=== PATIENT | female | born 1950 | race Caucasian/White ===

== ENCOUNTER 2018-06-02 08:26 | Outpatient (CLI) | payer MEDICARE, SELFPAY ==
[2018-06-02 15:28] LABS: TSH 1.62 uIU/mL (0.358-3.74)
== END 2018-06-02 08:46 ==
PROVIDERS: PCP Emergency Medicine; Visit Provider Emergency Medicine
DX: E03.9 Hypothyroidism, unspecified (principal)
CPT/HCPCS: 36415; 84443

== ENCOUNTER 2018-12-03 15:32 | Outpatient (REF) | payer MEDICARE, SELFPAY ==
--- NOTE | 2018-12-03 15:05 | PAPFT_PTH ---
PATIENT: Mya Berumen LOC: [facility] U#:[id number] AGE/SX: 68/F ROOM: RE12/03/[address]: KEVIN Sanchez : 1950 BED: DIS: 12/03/2018 SPEC #: [id number] RECD: 12/03/18 17:53 STATUS: ABEL REQ #: [id number] SELMA: 12/03/18 15:[address]: Francine Miller DEPT: [facility] Cytology RECD BY: Cassia Scanlon ENTERED: 12/03/18 17:53 SP TYPE: PAPFT OTHR DR: Alex Webster, Tissues: 1 - CX/ENDOCX FOR PAP SMEARS Procedures: PAP THIN PREP/[facility] Screening Comments: [id number]
== END 2018-12-03 15:52 ==
LOC: LBN 15:32
PROVIDERS: PCP Emergency Medicine; Visit Provider Nurse Practitioner Family
DX: Z12.4 Encounter for screening for malignant neoplasm of cervix (principal)
CPT/HCPCS: 88142

== ENCOUNTER 2018-12-07 01:07 | Outpatient (CLI) | payer MEDICARE, SELFPAY ==
--- NOTE | 2018-12-07 12:45 | DI.MAMMO_ITS ---
SYMPTOMS/DIAGNOSIS: SCREENING, Z12.31 MAMMOGRAM: Mammograms were interpreted according to the usual protocol including computer analysis with CAD system, tomosynthesis and C view imaging. The breasts are of moderate density with fairly symmetrical distribution of fibroglandular tissue. No dominant mass or clumped microcalcification is identified in either breast. Current examination is compared with previous examinations including October 2017 and there has been no gross interval change in appearance in comparison with the previous studies. CONCLUSION: No specific evidence of malignancy at this time. Routine screening examinations are suggested at yearly intervals due to the family history of breast carcinoma. Category 1, breast density category B. MQSA ASSESSMENT OF FINDINGS: Negative. Category 1. Patient will receive a letter notifying them of these results. BI-RADS category B. There are scattered areas of fibroglandular density.
== END 2018-12-07 01:27 ==
PROVIDERS: PCP Emergency Medicine; Visit Provider Nurse Practitioner Family
DX: Z12.31 Encounter for screening mammogram for malignant neoplasm of breast (principal); Z80.3 Family history of malignant neoplasm of breast
CPT/HCPCS: 77063; 77067

== ENCOUNTER → 2019-01-15 10:49 | Outpatient (BNVA) | payer MEDICARE, SELFPAY | PROVIDERS: PCP Emergency Medicine; Referring Provider Emergency Medicine; Visit Provider Physical Therapy Assistant | DX: Z12.11 Encounter for screening for malignant neoplasm of colon (principal); Z86.010 Personal history of colon polyps ==

== ENCOUNTER 2019-02-12 06:14 | Day surgery (SDC) | payer MEDICARE, SELFPAY ==
[2019-02-12 06:31] VITALS: BP 121/80; PULSE 87; RESP 18; TEMP 36.2; O2SAT 97
[2019-02-12] MEDS: Lactated Ringers 1,000 ML 80 ML IV (06:44)
--- NOTE | 2019-02-12 07:58 | W.PM.DSUDISC ---
Discharge Plan Disposition Patient Disposition: HOME Condition: Good Discharge Details Attending Provider: Thuy Conteh Primary Care Provider: Alex Webster Home Meds and New Rx's Prescriptions: Continued magnesium gluconate [Mag-G] 27 mg magnesium (500 mg) tablet 500 mg PO BID RF: 0 zinc 50 mg tablet 50 mg PO DAILY RF: 0 melatonin 5 mg tablet 15 mg PO HS PRNRF: 0 levothyroxine [Synthroid] 175 mcg tablet 175 mcg PO DAILY Qty: 90 RF: 3 PreserVision AREDS 1 EACH tablet 2 ea PO DAILY RF: 0 citalopram 20 MG tablet 20 mg PO DAILY Qty: 60 RF: 6 cetirizine [Zyrtec] 10 MG tablet 10 mg PO DAILY RF: 0 Discontinued polyethylene glycol 3350 17 gram/dose powder 238 g PO ONCE Qty: 238 RF: 0 bisacodyl [Dulcolax (bisacodyl)] 5 mg tablet,delayed release (DR/EC) 5 mg PO ONCE Qty: 4 RF: 0 Discharge Instructions Additional Instructions: Your colonoscopy showed mild diverticulosis. No polyps were found Plan for follow up in 5 years due to family history Activity:: Activity as Tolerated Diet:: As Tolerated Discharge Orders Discharge Orders: Discharge Order (Routine); Ordered 02/12/19 Ordered By: Thuy Conteh DS: Diagnosis Discharge Diagnosis (1) Diverticulosis: Start date: 02/12/19 Start time: 07:59 Status: Acute
[2019-02-12 08:30] VITALS: BP 114/65; PULSE 71; RESP 18; TEMP 36; O2SAT 97
--- NOTE | 2019-02-12 10:49 | COLE_ITS ---
DATE OF PROCEDURE: February 12, 2019 PREOPERATIVE DIAGNOSIS: 1. Family history of colon cancer. 2. History of colon polyp. PROCEDURE: Colonoscopy. SURGEON: Thuy Conteh M.D. ANESTHESIA: General. INDICATIONS: This is a 68-year-old woman whose last colonoscopy in 2013 showed a tubular adenoma. S he is asymptomatic. Her family history is significant for a sister with colon cancer. PROCEDURE: She was placed in the left Castillo' position. Propofol is titrated to sedation. Digital re ctal examination revealed no abnormalities. The scope is advanced to the cecum without difficulty. The ileocecal valve and appendiceal orifice were clearly identified. Her prep was excellent. The sc ope was slowly withdrawn over the course of greater than six minutes with no abnormalities seen withi n the ascending, transverse or descending colon. The sigmoid region revealed mild diverticular keane e. The rectum was normal, including on retroflex view. She tolerated the procedure well and was sta ble to recovery. With her history of polyps and family history, she will need a follow-up colonoscop y again in five years. cc: Alex Webster D.O.
== END 2019-02-12 08:38 | disposition home or self-care (01) ==
PROVIDERS: PCP Emergency Medicine; Visit Provider Surgery
PROC: 0DJD8ZZ Inspection of Lower Intestinal Tract, Via Natural or Artificial Opening Endoscopic (ICD-10-PCS; CPT 45378; principal; 2019-02-12 07:30)
DX: Z12.11 Encounter for screening for malignant neoplasm of colon (principal); K57.30 Diverticulosis of large intestine without perforation or abscess without bleeding; Z86.010 Personal history of colon polyps; Z80.0 Family history of malignant neoplasm of digestive organs
CPT/HCPCS: G0105

== ENCOUNTER 2019-03-18 10:04 | Outpatient (CLI) | payer MEDICARE, SELFPAY ==
[2019-03-18 12:50] LABS: Hemoglobin A1C 5.7 % (4.5-6.2)
[2019-03-18 13:23] LABS: TSH 3.47 uIU/mL (0.36-3.74)
== END 2019-03-18 10:24 ==
PROVIDERS: PCP Emergency Medicine; Visit Provider Emergency Medicine
DX: E03.9 Hypothyroidism, unspecified (principal); E66.9 Obesity, unspecified; Z13.1 Encounter for screening for diabetes mellitus
CPT/HCPCS: 36415; 83036; 84443

== ENCOUNTER 2020-06-09 02:48 | Outpatient (CLI) | payer MEDICARE, SELFPAY ==
[2020-06-09 14:18] LABS: ALT 48 U/L (14-59); AST 29 U/L (15-37); Albumin 4.1 g/dL (3.4-5.0); Alkaline Phosphatase 118 U/L (46-116); Anion Gap 5.9 mmol/L (3-11); BUN 25 mg/dL (7-18); Bilirubin, Total 0.4 mg/dL (0.2-1.0); CO2 30.1 mmol/L (21.0-32.0); CREATININE 0.89 mg/dL (0.55-1.02); Chloride 104 mmol/L (98-107); Ferritin 279 ng/mL (8-252); Glucose 109 mg/dL (74-106); Potassium 4.1 mmol/L (3.5-5.1); Sodium 140 mmol/L (136-145)
== END 2020-06-09 03:08 ==
PROVIDERS: PCP Emergency Medicine; Visit Provider Nurse Practitioner
DX: M25.561 Pain in right knee (principal); E66.9 Obesity, unspecified
CPT/HCPCS: 36415; 80053; 82728

== ENCOUNTER 2020-06-13 10:51 | Outpatient (REF) | payer MEDICARE, SELFPAY ==
[2020-06-13 13:37] LABS: TSH 0.22 uIU/mL (0.36-3.74)
== END 2020-06-13 11:11 ==
LOC: LBN 10:51
PROVIDERS: PCP Emergency Medicine; Visit Provider Emergency Medicine
DX: E03.9 Hypothyroidism, unspecified (principal)
CPT/HCPCS: 84443

== ENCOUNTER 2020-09-06 02:46 | Outpatient (CLI) | payer MEDICARE, SELFPAY ==
--- NOTE | 2020-09-06 07:35 | DI.MAMMO_ITS ---
EXAM: MG MAMMO SCREENING CLINICAL HISTORY: screening TECHNIQUE: Bilateral full field digital CC and MLO mammographic images were obtained with 3D tomosyn thesis and utilizing computer aided detection (CAD). COMPARISON: Available for comparison. FINDINGS: Masses/Architectural Distortion: No suspicious masses or areas of architectural distortion. Small bi lateral nodules are present. Microcalcifications: No suspicious pleomorphic-type are seen. Skin Thickening/Nipple Retraction: None. IMPRESSION: 1. No significant interval change with no specific features of malignancy noted. 2. Unless there is more urgent need, screening mammography is recommended, as per [employer] guidelines. BI-RADS Category 2 - Benign Findings Breast Density - Category B - Scattered areas of fibroglandular density Breast density category C or D implies that the patient has dense breast tissue. Dense breast tissue is very common and is not abnormal but dense breast tissue can make it harder to find cancer on a ma mmogram. Also, dense breast tissue may increase their breast cancer risk. This information about the result of the mammogram report was provided to the patient to raise their awareness. Use this report when you speak with the patient about their risks for breast cancer, which includes their family hist ory. At that time, you may recommend for more screening tests (Ultrasound or MRI) as they might be us eful based on their risk. A negative radiographic report should not delay biopsy if a dominant or clinically suspicious mass is present. Up to ten percent of cancers are not identified on mammography. A negative report may reinforce clinical impression. Adenosis and dense breasts may obscure an underlying neoplasm. False positive reports average 6 to 10%. Patient will receive a letter notifying them of these results.
== END 2020-09-06 02:47 | disposition home or self-care (01) ==
PROVIDERS: PCP Emergency Medicine; Visit Provider Nurse Practitioner Family
DX: Z12.31 Encounter for screening mammogram for malignant neoplasm of breast (principal)
CPT/HCPCS: 77063; 77067

== ENCOUNTER 2021-03-27 16:55 | Outpatient (REF) | payer MEDICARE, SELFPAY ==
[2021-03-27 19:14] LABS: TSH 2.04 uIU/mL (0.36-3.74)
== END 2021-03-27 16:56 | disposition home or self-care (01) ==
LOC: LBN 16:55
PROVIDERS: PCP Emergency Medicine; Visit Provider Emergency Medicine
DX: E03.9 Hypothyroidism, unspecified (principal)
CPT/HCPCS: 84443

== ENCOUNTER 2021-07-11 18:04 | Day surgery (SDC) | payer MEDICARE, SELFPAY ==
[2021-07-11] VITALS (28 sets, daily range): BP systolic 124–145; BP diastolic 59–93; PULSE 73–91; RESP 16–18; TEMP 36.6; O2SAT 92–97
--- NOTE | 2021-07-11 18:15 | DI.RAD_ITS ---
Exam(s) XR HIP LT COMPLETE AP PELVIS EXAM: XR HIP LT COMPLETE AP PELVIS CLINICAL HISTORY: fall/pain. TECHNIQUE: 2D digital imaging was performed. COMPARISON: No exams were available for comparison FINDINGS: There is nondisplaced fracture at the mid level of the left hip femoral neck. No other pelvic fractu res identified.. No hip joint space narrowing. Sacroiliac joints unremarkable. Degenerative disc d isease lumbar spine. IMPRESSION: There is nondisplaced fracture at the mid left femoral neck. DATA REPOSITORY: RADIATION DOSE DELIVERED:
--- NOTE | 2021-07-11 18:36 | W.ED.GENAD ---
Discharge Plan Disposition Patient Disposition: [facility] INPATIENT Condition: Stable Discharge Details Chief Complaint: Orthopedic Clinical Impression: Fracture of femoral neck, left Primary Care Provider: Alex Webster ED Provider: Paulo Wall Home Meds and New Rx's Prescriptions: No Action melatonin 5 mg tablet 10 mg PO HS PRNRF: 0 ropinirole 1 mg tablet 1 mg PO QHS RF: 0 PreserVision AREDS 1 EACH tablet 2 ea PO DAILY RF: 0 famotidine 20 mg tablet 20 mg PO BID Qty: 180 RF: 2 citalopram 20 mg tablet 20 mg PO DAILY Qty: 90 RF: 6 levothyroxine [Synthroid] 175 mcg tablet 175 mcg PO DAILY Qty: 90 RF: 3 Medical Decision Making 70-year-old female, past medical history of thyroid disease, GERD, anxiety, not anticoagulated, presents to the ER now for left hip pain status post mechanical fall around 2 PM this afternoon. She denies any other injury. She has been able to bear weight since her fall. Did not take any medication for her symptoms. Clinically she appears well, nontoxic. Neuro, vascular, tendon intact. Patient denies any pain at the moment, does not want any analgesia. Plan is to obtain x-ray imaging of her left hip and pelvis and then reassess. X-ray of left hip and pelvis reveals a nondisplaced fracture of the left femoral neck. Case discussed with our orthopedic team, Dr. Luong. He believes that the patient can be cared for here at our facility and recommends admitting to the hospitalist services, plans to bring her to the OR tomorrow. Routine screening laboratory values were obtained as well as an EKG. Discussed x-ray findings and my conversation with Dr. Luong with the patient. She is agreeable to admission and surgery. No additional questions or concerns. Case then discussed with our hospitalist services, Dr. Santoyo. He is agreeable to admission and will place admission orders. This documentation was generated using [employer] system, please disregard any oddities of phrase or misspellings. Medical Records Medical records reviewed: Yes I reviewed the patient's medical records. Imaging Data Radiologic Study: Attestation: I personally reviewed and interpreted this imaging study as follows: Imaging: X-Ray Radiologist's impression: PROCEDURE INFORMATION: Exam: XR Left Hip Exam date and time: 07/11/2021 6:29 PM Age: 70 years old Clinical indication: Other: Fall TECHNIQUE: Imaging protocol: XR Left hip. Views: 2 or 3 views hip with pelvis when performed. COMPARISON: No relevant prior studies available. FINDINGS: Bones/joints: Nondisplaced fracture present at the left mid femoral neck. The femoral head is appropriately located. Intertrochanteric region is maintained. Pubic rami are intact. No abnormalities observed in the proximal right femur. Soft tissues: Unremarkable. IMPRESSION: Nondisplaced fracture, left mid femoral neck. Lab Data Lab results reviewed: Yes I reviewed the patient's lab results. Labs: Laboratory Tests Range/Units 07/11/21 07/11/21 07/11/21 19:10 19:10 19:10 WBC (4.4-10.8) 10^3/uL 9.72 RBC (3.93-5.22) 10^6/uL 4.58 Hgb (11.2-15.7) g/dL 13.2 Hct (36.0-46.0) % 40.6 MCV (80-95) fL 88.6 MCH (27.0-33.0) pg 28.8 MCHC (32.0-36.0) % 32.5 RDW (11.7-14.6) % 12.8 Plt Count (130-400) 10^3/uL 249 MPV (8.0-11.0) fL 9.8 Immature Gran % 0.4 Neutrophils % 86.5 Lymphocytes % 5.7 Monocytes % 7.0 Eosinophils % 0.1 Basophils % 0.3 Nucleated RBC % % 0 Absolute Neutrophils (1.2-6.7) 10^3/uL 8.41 H Absolute Lymphocytes (1.2-3.4) 10^3/uL 0.55 L Absolute Monocytes (0.1-0.8) 10^3/uL 0.68 Absolute Eosinophils (0.0-0.7) 10^3/uL 0.01 Absolute Basophils (0.0-0.2) 10^3/uL 0.03 PT (9.3-11.0) sec 10.2 INR (0.9-1.1) 1.0 APTT (21.0-27.5) sec 22.7 Sodium (136-145) mmol/L 139 Potassium (3.5-5.1) mmol/L 4.1 Chloride (98-107) mmol/L 103 Carbon Dioxide (21.0-32.0) mmol/L 27.3 Anion Gap (3-11) mmol/L 8.7 BUN (7-18) mg/dL 30 H Creatinine (0.55-1.02) mg/dL 0.7 Estimated GFR/1.73 m2 (mL/min/1.73m2) >= 60.00 Glucose (74-106) mg/dL 121 H Calcium (8.5-10.1) mg/dL 8.9 Total Bilirubin (0.2-1.0) mg/dL 0.5 AST (15-37) U/L 37 ALT (14-59) U/L 56 Alkaline Phosphatase (46-116) U/L 85 Total Protein (6.4-8.2) g/dL 7.2 Albumin (3.4-5.0) g/dL 4.0 COVID-19 Source Range/Units 07/11/21 19:15 WBC (4.4-10.8) 10^3/uL RBC (3.93-5.22) 10^6/uL Hgb (11.2-15.7) g/dL Hct (36.0-46.0) % MCV (80-95) fL MCH (27.0-33.0) pg MCHC (32.0-36.0) % RDW (11.7-14.6) % Plt Count (130-400) 10^3/uL MPV (8.0-11.0) fL Immature Gran % Neutrophils % Lymphocytes % Monocytes % Eosinophils % Basophils % Nucleated RBC % % Absolute Neutrophils (1.2-6.7) 10^3/uL Absolute Lymphocytes (1.2-3.4) 10^3/uL Absolute Monocytes (0.1-0.8) 10^3/uL Absolute Eosinophils (0.0-0.7) 10^3/uL Absolute Basophils (0.0-0.2) 10^3/uL PT (9.3-11.0) sec INR (0.9-1.1) APTT (21.0-27.5) sec Sodium (136-145) mmol/L Potassium (3.5-5.1) mmol/L Chloride (98-107) mmol/L Carbon Dioxide (21.0-32.0) mmol/L Anion Gap (3-11) mmol/L BUN (7-18) mg/dL Creatinine (0.55-1.02) mg/dL Estimated GFR/1.73 m2 (mL/min/1.73m2) Glucose (74-106) mg/dL Calcium (8.5-10.1) mg/dL Total Bilirubin (0.2-1.0) mg/dL AST (15-37) U/L ALT (14-59) U/L Alkaline Phosphatase (46-116) U/L Total Protein (6.4-8.2) g/dL Albumin (3.4-5.0) g/dL COVID-19 Source Nasal/Nares ECG Data Attestation: I personally reviewed and interpreted this ECG (s) as follows: Interpretation: Please see official report by Dr. Lion. Sinus rhythm, ventricular rate of 83. No STEMI. HPI General Mode of arrival: EMS. Date/Time Provider Initiated Documentation: 07/11/21 18:11. Limitations to Documentation: no limitations. Information obtained by: patient and EMS. HPI Narrative: This is a 70-year-old female, history of thyroid disease, GERD, anxiety, not anticoagulated, presenting to the ER for evaluation of left hip pain status post mechanical slip and fall on ice around 2:00 this afternoon. Patient states that she was able to get up on her own and ambulate back into her house. She denies any other injury, striking her head, headache, neck pain, symptoms prior to the fall, chest pain, abdominal pain, nausea, vomiting, incontinence, numbness, tingling, weakness. She has not taken any medication for her symptoms. Patient states that at rest she has no discomfort whatsoever. She also denies any discomfort with palpation. Patient states she only feels pain in her hip, upper leg, with movement. Reports the pain at that time is moderate. Patient states that she is able to bear weight. Related Data Home Medications Medication Instructions Recorded Confirmed PreserVision AREDS 2 ea PO DAILY 07/04/16 07/11/21 melatonin 5 mg tablet 10 mg PO HS PRN tab 03/21/20 07/11/21 ropinirole 1 mg tablet 1 mg PO QHS 06/13/20 07/11/21 famotidine 20 mg tablet 20 mg PO BID #180 tab 01/23/21 07/11/21 citalopram 20 mg tablet 20 mg PO DAILY #90 tab-cap 05/17/21 07/11/21 levothyroxine 175 mcg tablet 175 mcg PO DAILY #90 tab-cap 05/21/21 07/11/21 Previous Rx's Medication Instructions Recorded famotidine 20 mg tablet 20 mg PO BID #180 tab 01/23/21 citalopram 20 mg tablet 20 mg PO DAILY #90 tab-cap 05/17/21 levothyroxine 175 mcg tablet 175 mcg PO DAILY #90 tab-cap 05/21/21 Allergies Allergy/AdvReac Type Severity Reaction Status Date / Time No Known Drug Allergies Allergy Verified 07/11/21 18:10 General Stated Complaint: Orthopedic CAITLIN: 3 Review of Systems Constitutional Constitutional: Denies fatigue, Denies fever(s), Denies headache(s) and Denies weakness ENT Ears, Nose, Mouth, and Throat: Denies headache(s) Cardiovascular Cardiovascular: Denies chest pain and Denies dyspnea Respiratory Respiratory: Denies dyspnea Gastrointestinal Gastrointestinal: Denies abdominal pain, Denies nausea and Denies vomiting Musculoskeletal Musculoskeletal: Denies back pain, Denies deformity, Denies numbness and Denies tingling Integumentary/Breasts Skin/Breast: Denies erythema Neurologic Neurologic: Denies headache(s), Denies numbness, Denies tingling and Denies weakness Endocrine Endocrine: Denies fatigue Hematologic/Lymphatic Hematologic/Lymphatic: Denies easy bleeding and Denies easy bruising [facility] Active Problem List (Updated 07/11/21 @ 20:06 by VANESSA Burch) Fracture of femoral neck, left (Acute) Fracture of femoral neck, left, closed (Acute) Diverticulosis (Acute) Sebaceous cyst of labia (Chronic) Family history of colon cancer (Acute) Status post total right knee replacement (Acute 02/13/16) Sleep disturbance, unspecified (Acute) Polyp of colon (Acute 10/25/13) Obesity (Acute 03/03/13) Hypothyroidism (Acute 03/03/13) Family hx-breast malignancy (Acute) Depressive disorder, not elsewhere classified (Acute 03/05/13) Abnormal cervical Papanicolaou smear (Acute 03/23/12) Anxiety state, unspecified (Acute 03/05/13) Arthritis of knee, right (Acute) Surgical History Replacement of total knee joint right Family History Mother Personal history of malignant neoplasm breast Father Myocardial infarction Sister Personal history of malignant neoplasm colon Sister Personal history of malignant neoplasm breast/bone Sister Personal history of malignant neoplasm breast ?uterine Brother HIV disease Brother Lavonne Gehrig disease Sister No problems noted. Son No problems noted. Social History Smoking/Tobacco Use Status: Never Smoking risk assessment performed?: Yes Alcohol Intake: never Drug use: Never Substance use type: does not use Caregiver/Support person: No Household members: friend(s) Communication Needs: None Do you need help understanding health information?: Never Pets and animals: No Sexually active: No Do you think of yourself as: straight/heterosexual Current gender identity: female What is your relationship status?: How often do you talk on the phone with friends or family?: twice per week How often do you get together with friends or relatives?: once per week Do you belong to any clubs or organized social groups?: no Panel score (0-1 are the most socially isolated patients): 1 What type of physical activity do you participate in: aerobic and weight lifting Duration: 30-45 minutes/day Frequency: 1-2 times per week Special allie needs: No Seatbelt use: always Helmet use: Yes Helmet use: always Drive intox or ride w/intox skidder driver: No Do you feel safe at home: Yes Do you feel safe in your relationship?: Yes Exam Const General: cooperative, healthy appearing, comfortable and no acute distress Orientation: alert, awake and oriented x3 HENMT Head: normal to inspection, normocephalic and atraumatic Mouth: moist mucous membranes Eyes General: appearance normal, both eyes and all related structures Conjunctivae: conjunctivae normal Neck Neck: normal visual inspection, full ROM, trachea midline, supple and nontender Resp Effort & Inspection: normal respiratory effort and able to speak in complete sentences Auscultation: clear to auscultation bilaterally Cardio Rate: regular rate Rhythm: regular rhythm GI Palpation: soft and nontender Back/Spine/Pelvis Back: No back tenderness Skin General skin exam: no rashes or lesions noted Neuro General: patient alert, patient awake, moves all extremities and no focal motor deficits Cognition: normal cognition Gait: normal gait Motor: muscle tone normal throughout Sensory Exam: no sensory deficits noted Extrem General: normal to inspection, capillary refill normal and no calf tenderness Other: Left hip and pelvis unremarkable inspection. Patient is able to move her knee, ankle, toes, normal pedal pulses and capillary refill. There is no shortening or rotation of the left leg. I am unable to reproduce any discomfort with palpation however patient does state increased discomfort with attempting to move her hip. Limited range of motion in her hip secondary discomfort. Psych Appearance: grossly normal Mental Status: mental status grossly normal Course Vital Signs Vital signs: Vital Signs Temperature 36.6 C 07/11/21 18:04 Pulse 91 H 07/11/21 18:04 Respiratory Rate 18 07/11/21 18:04 Blood Pressure 131/80 07/11/21 18:04 Pulse Oximetry 97 07/11/21 18:04 Temperature 36.6 C 07/11/21 18:04 Temperature Source Temporal Artery Scan 07/11/21 18:04 Pulse 91 H 07/11/21 18:04 Respiratory Rate 18 07/11/21 18:04 Respiratory Effort Non-Labored 07/11/21 18:11 Blood Pressure 131/80 07/11/21 18:04 Blood Pressure Position Sitting 07/11/21 18:04 Pulse Oximetry 97 07/11/21 18:04 Oxygen Delivery Method Room Air 07/11/21 18:04 Oxygen Flow Rate 0 07/11/21 18:04 Pain Level 5 07/11/21 18:11
--- NOTE | 2021-07-11 19:15 | RT.EKG_ITS ---
APPROVED REPORT Exam: Resting ECG Reason for Exam: pre procedure Patient Location: E HR:83 bpm ECG Measurements Heart Rate 83 AXIS AL 139 P 71 QRSd 80 QRS 24 QT 367 T 21 QTc 431 Conclusion Sinus rhythm...normal P axis, V-rate 60- 99. Sinus. No STEMI. I have reviewed and interpreted ECG and agree with software generated interpretation.
--- NOTE | 2021-07-11 19:19 | DI.VRAD_ITS ---
PROCEDURE INFORMATION: Exam: XR Left Hip Exam date and time: 07/11/2021 6:29 PM Age: 70 years old Clinical indication: Other: Fall TECHNIQUE: Imaging protocol: XR Left hip. Views: 2 or 3 views hip with pelvis when performed. COMPARISON: No relevant prior studies available. FINDINGS: Bones/joints: Nondisplaced fracture present at the left mid femoral neck. The femoral head is appropriately located. Intertrochanteric region is maintained. Pubic rami are intact. No abnormalities observed in the proximal right femur. Soft tissues: Unremarkable. IMPRESSION: Nondisplaced fracture, left mid femoral neck. Dictated and Authenticated by: Mark Salinas MD. Ordering:ANGY Bates MD
[2021-07-11 19:24] LABS: Source Nasal/Nares
[2021-07-11 19:34] LABS: Abs Immature Grans 0.04 10^3/uL (0.0-0.06); Absolute Basophil Count 0.03 10^3/uL (0.0-0.2); Absolute Eosinophil Count 0.01 10^3/uL (0.0-0.7); Absolute Lymphocyte Count 0.55 10^3/uL (1.2-3.4); Absolute Monocyte Count 0.68 10^3/uL (0.1-0.8); Absolute Neutrophil Count 8.41 10^3/uL (1.2-6.7); Basophils % 0.3; Eosinophils % 0.1; HCT 40.6 % (36.0-46.0); HGB 13.2 g/dL (11.2-15.7); Immature Grans % 0.4; Lymphocytes % 5.7; MCH 28.8 pg (27.0-33.0); MCHC 32.5 % (32.0-36.0); MCV 88.6 fL (80-95); MPV 9.8 fL (8.0-11.0); Neutrophils % 86.5; Nucleated RBC 0 %; Platelet Count 249 10^3/uL (130-400); RBC 4.58 10^6/uL (3.93-5.22); RDW 12.8 % (11.7-14.6); RDW-SD 41.6 fL; WBC 9.72 10^3/uL (4.4-10.8)
[2021-07-11 19:39] LABS: ALT 56 U/L (14-59); AST 37 U/L (15-37); Alkaline Phosphatase 85 U/L (46-116); Anion Gap 8.7 mmol/L (3-11); BUN 30 mg/dL (7-18); Bilirubin, Total 0.5 mg/dL (0.2-1.0); CO2 27.3 mmol/L (21.0-32.0); CREATININE 0.7 mg/dL (0.55-1.02); Calcium 8.9 mg/dL (8.5-10.1); Chloride 103 mmol/L (98-107); Glucose 121 mg/dL (74-106); Potassium 4.1 mmol/L (3.5-5.1); Sodium 139 mmol/L (136-145); Total Protein 7.2 g/dL (6.4-8.2)
[2021-07-11 19:44] LABS: PTT Activated 22.7 sec (21.0-27.5); Prothrombin Time 10.2 sec (9.3-11.0)
[2021-07-11 20:04] LABS: Bilirubin Negative (Negative); Blood Trace-intact (Negative); Clarity Clear (Clear); Glucose Negative (Negative); Ketones 15 mg/dL (Negative); Leukocyte Esterase Negative (Negative); Nitrite Negative (Negative); Specific Gravity 1.025 (1.005-1.025); Urobilinogen 0.2 EU/dL (Up TO 0.2)
[2021-07-11 20:30] LABS: Bacteria Negative HPF (Negative); C & S Indicated? No; Casts Negative LPF (Negative); Crystals Negative HPF (Negative); Epithelial Cells Negative HPF (Negative); Mucus Negative (Negative); Other Cells Negative (Negative); RBC 0-2 HPF (0-2); WBC 0-2 HPF (0-5)
[2021-07-11] MEDS: Acetaminophen 325 MG TAB PO (22:12)
[2021-07-11] MEDS: Famotidine 20 MG TAB PO (22:12)
[2021-07-11] MEDS: Melatonin 3 MG TAB 9 MG PO (22:13)
[2021-07-11] MEDS: diazePAM 5 MG TAB PO (22:16)
[2021-07-11] MEDS: rOPINIRole 1 MG TAB PO (23:49)
[2021-07-12] VITALS (59 sets, daily range): BP systolic 133–154; BP diastolic 65–95; PULSE 64–82; RESP 13–19; TEMP 35.7–36.5; O2SAT 89–98; BMI 31.4
[2021-07-12 03:21] LABS: COVID-19 PCR Negative (Negative)
[2021-07-12 06:08] LABS: Anion Gap 5.8 mmol/L (3-11); BUN 28 mg/dL (7-18); CO2 30.2 mmol/L (21.0-32.0); CREATININE 0.6 mg/dL (0.55-1.02); Calcium 8.8 mg/dL (8.5-10.1); Chloride 104 mmol/L (98-107); Glucose 108 mg/dL (74-106); Potassium 4.2 mmol/L (3.5-5.1); Sodium 140 mmol/L (136-145)
--- NOTE | 2021-07-12 08:30 | DI.RAD_ITS ---
Exam(s) XR HIP LT IN OR EXAM: XR HIP LT IN OR CLINICAL HISTORY: femoral neck fracture, left. TECHNIQUE: 2D digital imaging was performed. COMPARISON: No exams were available for comparison FINDINGS: Fluoroscopy was provided during left hip femoral neck pinning. See procedure report for details. Im ages reveal 3 screws placed across the femoral neck fracture site. Total fluoroscopy time= 78.9 seconds Cumulative dose= 15.27mGy IMPRESSION: DATA REPOSITORY: RADIATION DOSE DELIVERED:
--- NOTE | 2021-07-12 08:38 | ANES.PREOP_ITS ---
General Info Date of Service Date Performed: 07/12/21 Height: 5 ft 5 in Weight: 85.729 kg Body Mass Index (BMI): 31.4 Surgical Procedure: Operation Date: 07/12/21 09:55 Proposed Procedures Side Surgeon p Hip Cannulated Fx Left Berhane Luong MD Meds Allergies and Home Medications Allergies Allergy/AdvReac Type Severity Reaction Status Date / Time No Known Drug Allergies Allergy Verified 07/11/21 18:10 Home Medication Medication Instructions Recorded PreserVision AREDS 2 ea PO DAILY 07/04/16 melatonin 5 mg tablet 10 mg PO HS PRN tab 03/21/20 ropinirole 1 mg tablet 1 mg PO QHS 06/13/20 famotidine 20 mg tablet 20 mg PO BID #180 tab 01/23/21 citalopram 20 mg tablet 20 mg PO DAILY #90 tab-cap 05/17/21 levothyroxine 175 mcg tablet 175 mcg PO DAILY #90 tab-cap 05/21/21 Current Visit Medications: Current Medications Generic Name Dose Route Start Last Admin Trade Name Freq PRN Reason Stop Dose Admin Acetaminophen 0 mg 07/11/21 20:01 07/11/21 22:12 Acetaminophen 325 Mg Tab PO 650 mg Q4H PRN PRN Administration Citalopram Hydrobromide 20 mg 07/12/21 08:30 Citalopram 20 Mg Tab PO DAILY EVANGELISTA Dimethicone/Zinc Oxide 0 gm 07/11/21 20:01 Chandrakant Protect Cream 142 Gm Tube TP PRN PRN Famotidine 20 mg 07/11/21 20:00 07/11/21 22:12 Famotidine 20 Mg Tab PO 20 mg BID EVANGELISTA Administration IV Miscellaneous Supplies 1 each 07/11/21 19:15 Iv Access IV DIRECTED EVANGELISTA Levothyroxine Sodium 175 mcg 07/12/21 08:30 Levothyroxine 175 Mcg Tab PO DAILY EVANGELISTA Melatonin 9 mg 07/11/21 21:22 07/11/21 22:13 Melatonin 3 Mg Tab PO 9 mg HS PRN PRN Administration Morphine Sulfate 2 mg 07/11/21 20:05 Morphine 4 Mg/Ml Vial IVP Q2H PRN PRN Polyethylene Glycol 17 gm 07/11/21 20:01 Polyethylene Glycol 3350 17 Gm Packet PO DAILY PRN PRN Constipation Ropinirole HCl 1 mg 07/12/21 20:00 Ropinirole 1 Mg Tab PO QPM EVANGELISTA Vit C/Vit E/Zinc/Copper/Lutein 2 tab 07/12/21 08:30 Preservision Tablet PO DAILY EVANGELISTA PFSH Active Problems Active Problems: Problem Status Onset Code Fracture of femoral neck, left S72.002A Fracture of femoral neck, left, closed S72.002A Diverticulosis K57.90 Sebaceous cyst of labia N90.7 Family history of colon cancer Z80.0 Status post total right knee replacement 02/13/16 Z96.651 Sleep disturbance, unspecified G47.9 Polyp of colon 10/25/13 K63.5 Obesity 03/03/13 E66.9 Hypothyroidism 03/03/13 E03.9 Family hx-breast malignancy Z80.3 Depressive disorder, not elsewhere classified 03/05/13 F32.9 Abnormal cervical Papanicolaou smear 03/23/12 R87.619 Anxiety state, unspecified 03/05/13 F41.1 Arthritis of knee, right M19.90 Medical History Active Problem List (Updated 07/11/21 @ 20:06 by VANESSA Burch) Fracture of femoral neck, left (Acute) Fracture of femoral neck, left, closed (Acute) Diverticulosis (Acute) Sebaceous cyst of labia (Chronic) Family history of colon cancer (Acute) Status post total right knee replacement (Acute 02/13/16) Sleep disturbance, unspecified (Acute) Polyp of colon (Acute 10/25/13) Obesity (Acute 03/03/13) Hypothyroidism (Acute 03/03/13) Family hx-breast malignancy (Acute) Depressive disorder, not elsewhere classified (Acute 03/05/13) Abnormal cervical Papanicolaou smear (Acute 03/23/12) Anxiety state, unspecified (Acute 03/05/13) Arthritis of knee, right (Acute) Surgical History Surgical History Replacement of total knee joint right Tobacco Smoking/Tobacco Use Status: Never Passive smoking exposure: Yes Alcohol Alcohol Intake: never Substance Use Substance use: Never Substance use type: does not use Vital Signs and Lab Results Vital Signs Most Recent Vital Signs in EMR: Most Recent Vital Signs Temp Pulse Resp BP Pulse Ox 36.6 C 82 16 154/86 H 98 07/11/21 18:04 07/12/21 08:01 07/11/21 22:40 07/12/21 08:01 07/12/21 08:01 Lab Results Result Diagrams: 07/11/21 19:10 07/12/21 05:50 Blood Type / Crossmatch: No Data to Display Complete Blood Count: White Blood Count 9.72 10^3/uL (4.4-10.8) 07/11/21 19:10 07/11/21 Red Blood Count 4.58 10^6/uL (3.93-5.22) 07/11/21 19:10 07/11/21 Hemoglobin 13.2 g/dL (11.2-15.7) 07/11/21 19:10 07/11/21 Hematocrit 40.6 % (36.0-46.0) 07/11/21 19:10 07/11/21 Platelet Count 249 10^3/uL (130-400) 07/11/21 19:10 07/11/21 Complete Metabolic Panel: Sodium Level 140 mmol/L (136-145) 07/12/21 05:50 07/12/21 Potassium Level 4.2 mmol/L (3.5-5.1) 07/12/21 05:50 07/12/21 Chloride Level 104 mmol/L (98-107) 07/12/21 05:50 07/12/21 Carbon Dioxide Level 30.2 mmol/L (21.0-32.0) 07/12/21 05:50 07/12/21 Blood Urea Nitrogen 28 mg/dL (7-18) H 07/12/21 05:50 07/12/21 Creatinine 0.6 mg/dL (0.55-1.02) 07/12/21 05:50 07/12/21 Estimated GFR/1.73 m2 >= 60.00 (mL/min/1.73m2) 07/12/21 05:50 07/12/21 Calcium Level 8.8 mg/dL (8.5-10.1) 07/12/21 05:50 07/12/21 Albumin 4.0 g/dL (3.4-5.0) 07/11/21 19:10 07/11/21 Glucose Level 108 mg/dL (74-106) H 07/12/21 05:50 07/12/21 Liver Function Panel: Alanine Aminotransferase (ALT/SGPT) 56 U/L (14-59) 07/11/21 19:10 07/11/21 Aspartate Amino Transf (AST/SGOT) 37 U/L (15-37) 07/11/21 19:10 07/11/21 Coagulation Panel: INR International Normalized Ratio 1.0 (0.9-1.1) 07/11/21 19:10 07/11/21 Prothrombin Time 10.2 sec (9.3-11.0) 07/11/21 19:10 07/11/21 Activated Partial Thromboplast Time 22.7 sec (21.0-27.5) 07/11/21 19:10 07/11/21 Cardiac Panel: No Data to Display Arterial Blood Gas: No Data to Display Venous Blood Gas: 2 No Data to Display Pancreas Panel: No Data to Display Thyroid Panel: No Data to Display Infectious Disease: Coronavirus (COVID-19)(PCR) Negative (Negative) 07/11/21 19:15 07/11/21 Coronavirus 2019 Source Nasal/Nares 07/11/21 19:15 07/11/21 Blood Cultures: No Data to Display Toxicology Panel: No Data to Display Imaging and Studies Imaging and Studies Study information below may be from another EMR and interpreted by another provider. Please see original notes in EMR for more complete details. EKG Summary: 07/11/2021: Exam: Resting ECG Reason for Exam: pre procedure Patient Location: E HR:83 bpm ECG Measurements Heart Rate 83 AXIS WV 139 P 71 QRSd 80 QRS 24 QT 367 T21 QTc 431 Conclusion Sinus rhythm...normal P axis, V-rate 60- 99. Sinus. No STEMI. I have reviewed and interpreted ECG and agree with software generated interpretation. Anesthesia Assessment and Plan Anesthesia History Personal History: No History of Anesthesia Complications Family History: No Family History of Anesthesia Complications Exercise Tolerance Exercise Tolerance: Metabolic Equivalents>4 Pertinent Negatives Pertinent Negatives: No Symptoms of GERD (controlled on meds, no sx today), No Major Cardiovascular Symptoms or Complaints, No Major Pulmonary Symptoms or Complaints and No History of CVA/TIA Cardiac & Pulmonary Exam Cardiac Exam: Normal S1/S2 Heart Sounds Pulmonary Exam: Clear Bilateral Breath Sounds Implantable Cardiac Device Does patient have a Pacemaker or an ICD?: No Airway Exam Known Difficult Airway: No Mallampati Class: 1 Mouth Opening: Normal (> 3cm) Thyromental Distance: Greater than 3 cm Neck Range of Motion: Full ROM Neck Circumference: Normal Teeth Condition: Normal Dentition Airway Comments: #41, #31, #32 missing. none loose or chipped ASA Classification ASA Score: ASA 2 Emergency Case?: No NPO Status NPO Status: NPO Clears >2 hours, Solids >8 hours Anesthesia Plan Resuscitation Status: Full Code Anesthesia Technique: General Anesthesia Airway Planned: Endotracheal Tube Monitors Used: Standard Monitors
--- NOTE | 2021-07-12 09:30 | OCONE_ITS ---
Date of service: 07/12/21 Time of Service: 09:30 History of Present Illness Narrative: Patient describes mechanical fall onto left side with left hip pain. Able to ambulate back to her home. Presented to emergency department yesterday evening diagnosed with minimally displaced femoral neck fracture. Inpatient beds were full so held overnight in the emergency department pending surgery. Denies any other injuries. No chest pain, no shortness of breath, no trouble breathing. Did not hit head or neck. Consult Reason Left hip fracture Assessment and Plan Assessment and plan (1) Fracture of femoral neck, left, closed: Status: Acute Assessment and plan: 70 year old female with Left minimally displaced femoral neck fracture Medical admission and optimization for surgery tomorrow: Plan for percutaneous screw fixation given valgus impacted type femoral neck fracture and ability for patient to ambulate and weight-bear post?injury. As inpatient [facility] beds are full will now transfer from emergency department to operating room for surgery this morning. Postoperatively will go to day surgery unit with plans for physical therapy, gait training, and evaluation for safe discharge home this afternoon. Patient has been nonweightbearing on bedrest. N.p.o. and IV fluids with a Humphrey since yesterday evening. Chemo deep VT prophylaxis was held. The risks, benefits, and alternatives were thoroughly discussed. Patient was counseled regarding pain management, expected postoperative course, and recovery timeline. All questions were answered. Informed consent was obtained. Agree and understand treatment plan. Follow up 10-14 days after surgery. Will call if any changes or concerns. Will d/w hospitalist Qualifiers: Encounter type: initial encounter Qualified Code(s): S72.002A - Fracture of unspecified part of neck of left femur, initial encounter for closed fracture Review of Systems All systems reviewed & are unremarkable except as noted in HPI and below [facility] Active Problem List Fracture of femoral neck, left (Acute) Fracture of femoral neck, left, closed (Acute) Diverticulosis (Acute) Sebaceous cyst of labia (Chronic) Family history of colon cancer (Acute) Status post total right knee replacement (Acute 02/13/16) Sleep disturbance, unspecified (Acute) Polyp of colon (Acute 10/25/13) Obesity (Acute 03/03/13) Hypothyroidism (Acute 03/03/13) Family hx-breast malignancy (Acute) Depressive disorder, not elsewhere classified (Acute 03/05/13) Abnormal cervical Papanicolaou smear (Acute 03/23/12) Anxiety state, unspecified (Acute 03/05/13) Arthritis of knee, right (Acute) Surgical History Replacement of total knee joint right Family History Mother Personal history of malignant neoplasm breast Father Myocardial infarction Sister Personal history of malignant neoplasm colon Sister Personal history of malignant neoplasm breast/bone Sister Personal history of malignant neoplasm breast ?uterine Brother HIV disease Brother Lavonne Gehrig disease Sister No problems noted. Son No problems noted. Social History Smoking/Tobacco Use Status: Never Smoking risk assessment performed?: Yes Alcohol Intake: never Drug use: Never Substance use type: does not use Caregiver/Support person: No Household members: friend(s) Communication Needs: None Do you need help understanding health information?: Never Pets and animals: No Sexually active: No Do you think of yourself as: straight/heterosexual Current gender identity: female What is your relationship status?: How often do you talk on the phone with friends or family?: twice per week How often do you get together with friends or relatives?: once per week Do you belong to any clubs or organized social groups?: no Panel score (0-1 are the most socially isolated patients): 1 What type of physical activity do you participate in: aerobic and weight lifting Duration: 30-45 minutes/day Frequency: 1-2 times per week Special allie needs: No Seatbelt use: always Helmet use: Yes Helmet use: always 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 No wheezes rales or coughs. 2+ left radial pulse. Regular rate and rhythm. Left hip without any skin lesions, no edema, no ecchymosis. Tender deeply to palpation only lightly tested about the left hip. Did not test axial load, log roll, or straight leg raise due to fracture. Sensation intact grossly to light touch throughout left lower extremity. No signs of blood clot or infection. Demonstrates active range of motion about bilateral arms and right lower extremity without difficulty. Results Last Vital Signs Temp 97.9 F 07/11/21 18:04 Pulse 85 07/11/21 19:52 Resp 16 07/11/21 19:52 BP 133/59 L 07/11/21 19:52 Pulse Ox 97 07/11/21 19:52 Labs Result diagrams: 07/11/21 19:10 07/12/21 05:50 Labs: Laboratory Results - last 24 hr 07/11/21 07/11/21 07/11/21 19:10 19:10 19:10 WBC 9.72 RBC 4.58 Hgb 13.2 Hct 40.6 MCV 88.6 MCH 28.8 MCHC 32.5 RDW 12.8 Plt Count 249 MPV 9.8 Immature Gran % 0.4 Neutrophils % 86.5 Lymphocytes % 5.7 Monocytes % 7.0 Eosinophils % 0.1 Basophils % 0.3 Nucleated RBC % 0 Absolute Neutrophils 8.41 H Absolute Lymphocytes 0.55 L Absolute Monocytes 0.68 Absolute Eosinophils 0.01 Absolute Basophils 0.03 PT 10.2 INR 1.0 APTT 22.7 Sodium 139 Potassium 4.1 Chloride 103 Carbon Dioxide 27.3 Anion Gap 8.7 BUN 30 H Creatinine 0.7 Estimated GFR/1.73 m2 >= 60.00 Glucose 121 H Calcium 8.9 Total Bilirubin 0.5 AST 37 ALT 56 Alkaline Phosphatase 85 Total Protein 7.2 Albumin 4.0 COVID-19 Source 07/11/21 19:15 WBC RBC Hgb Hct MCV MCH MCHC RDW Plt Count MPV Immature Gran % Neutrophils % Lymphocytes % Monocytes % Eosinophils % Basophils % Nucleated RBC % Absolute Neutrophils Absolute Lymphocytes Absolute Monocytes Absolute Eosinophils Absolute Basophils PT INR APTT Sodium Potassium Chloride Carbon Dioxide Anion Gap BUN Creatinine Estimated GFR/1.73 m2 Glucose Calcium Total Bilirubin AST ALT Alkaline Phosphatase Total Protein Albumin COVID-19 Source Nasal/Nares Imaging Imaging Studies: Pelvis and left hip x-rays done in emergency department show complete, mildly displaced valgus impacted femoral neck fracture. No comminution or angulation appreciated on attempted lateral views.
--- NOTE | 2021-07-12 09:46 | W.PM.DSUDISC ---
Discharge Plan Disposition Patient Disposition: [facility] INPATIENT Condition: Stable Discharge Details Clinical Impression: Fracture of femoral neck, left Primary Care Provider: Alex Webster ED Provider: Naveed Bullard Home Meds and New Rx's Prescriptions: No Action melatonin 5 mg tablet 10 mg PO HS PRNRF: 0 ropinirole 1 mg tablet 1 mg PO QHS RF: 0 PreserVision AREDS 1 EACH tablet 2 ea PO DAILY RF: 0 famotidine 20 mg tablet 20 mg PO BID Qty: 180 RF: 2 citalopram 20 mg tablet 20 mg PO DAILY Qty: 90 RF: 6 levothyroxine [Synthroid] 175 mcg tablet 175 mcg PO DAILY Qty: 90 RF: 3 DS: Diagnosis Discharge Diagnosis (1) Fracture of femoral neck, left, closed: Status: Acute
[2021-07-12] MEDS: Lactated Ringers 1,000 ML 75 ML IV (09:50)
--- NOTE | 2021-07-12 11:21 | W.PM.OP ---
Date of service: 07/12/21 Time of Service: 11:10 Operative Note Operative Note DATE OF PROCEDURE: 07/12/21 PRE-OP DIAGNOSIS: Left minimally displaced femoral neck fracture POST-OP DIAGNOSIS: same Left hip percutaneous skeletal fixation, CPT # 01881 SURGEON: Berhane Luong SPECIAL EVENTS DIRECTOR: None None ANESTHESIA TYPE: Local By Surgeon and General LMA/ETT Refer to Anesthesia Record ESTIMATED BLOOD LOSS: 5 COMPLICATIONS: None Patient was transported to: PACU Patient's condition: stable Implants: 3x Synthes 7.3 mm short 16mm thread cannulated screws 80 mm inferior, 75 mm posterior, 80 mm anterior Indications: Please see complete medical record for details. Findings: Minimally displaced, valgus impacted femoral neck fracture Procedure Description: In the operating room, general anesthesia was induced. The patient was positioned supine on the [facility] operating room table. All bony prominences were well-padded. Preoperative antibiotics were administered. The left hip was prepped and draped in the usual sterile fashion. The correct patient, procedure, and side of the procedure were all verified prior to incision. The appropriate start point was localized and appropriate hip fracture position was confirmed fluoroscopically. 30 cc of 0.5% bupivacaine containing epinephrine was infiltrated superficially and deep about the planned surgical site. A small longitudinal incision was made from the start point proximally. A 2.8 mm threaded guidewire was then inserted by hand and centered on the bone laterally taking care to start inferiorly for good screw spread, but no more distal than the level of the lesser trochanter. The guidewire was directed into the inferior femoral neck and then head stopping in the subchondral bone. Appropriate central trajectory was confirmed on lateral fluoroscopy. A superior posterior guidewire was then inserted down to bone by hand and power used to deliver this guidewire and a parallel fashion into the posterior superior femoral neck and then head. Trajectory and spread was confirmed on lateral fluoroscopy. The incision was extended slightly and the last guidewire was inserted superior anterior position by hand down to bone and with power into the anterior superior femoral neck and then head. All guidewires were driven into the subchondral bone and confirmed on AP and lateral fluoroscopy. Depth gauge used to measure depth. A few millimeters subtracted for appropriate screw length. The 5.0 millimeter cannulated drill was then used to open the lateral cortex over each guidewire. Starting with the inferior screw each screw was inserted. Hand tightening was done sequentially maintaining fracture position and valgus stability. There was reasonable screw purchase. Guidewires were withdrawn confirmed appropriate screw depth and no penetration into the joint. Oblique AP and lateral fluoroscopy confirmed appropriate fracture position and placement of hardware as well. The small wound was copiously irrigated with normal saline. 2-0 Monocryl was used to close subcutaneous tissues in a buried interrupted fashion. The skin was closed with skin glue and the incision was covered with a Mepilex Band-Aid. The patient awoke from anesthesia without complication and was transferred to the recovery room in a stable condition.
--- NOTE | 2021-07-12 11:22 | PDOC.DSDIS_ITS ---
Discharge Plan Disposition Patient Disposition: HOME Condition: Stable Discharge Details Reason For Visit: Left hip fracture Attending Provider: Robyn Rodney Primary Care Provider: Alex Webster Home Meds and New Rx's Prescriptions: New naproxen 250 mg tablet 250 - 500 mg PO BID PRN (Reason: Moderate pain or swelling) Qty: 40 RF: 0 aspirin 81 mg tablet,delayed release (DR/EC) 81 mg PO BID 30 Days Qty: 60 RF: 0 tramadol 50 mg Tablet 50 mg PO Q8H PRN PRN (Reason: severe pain) Qty: 12 RF: 0 Continued melatonin 5 mg tablet 10 mg PO HS PRNRF: 0 ropinirole 1 mg tablet 1 mg PO QHS RF: 0 PreserVision AREDS 1 EACH tablet 2 ea PO DAILY RF: 0 famotidine 20 mg tablet 20 mg PO BID Qty: 180 RF: 2 citalopram 20 mg tablet 20 mg PO DAILY Qty: 90 RF: 6 levothyroxine [Synthroid] 175 mcg tablet 175 mcg PO DAILY Qty: 90 RF: 3 Discharge Instructions Additional Instructions: Surgery: Left hip percutaneous cannulated screw fixation Activity: Progressive ambulation. Weightbearing as tolerated with walker. An outpatient physical therapy prescription will be sent electronically to begin in about 2 weeks. Prescriptions: Aspirin 81 mg take 1 twice daily to prevent a blood clot for 30 days Naproxen 250 mg take 1-2 every 12 hours with a meal as needed for moderate pain Tramadol 50 mg take 1 every 8 hours as needed for severe pain You may use [id number] Tylenol (acetaminophen) as needed for mild pain. These pain medications may be taken all at once or in different combinations as needed. Also, recommend Colace (docusate) as a stool softener as surgery and pain medicine cause constipation. Dressings: Leave dressing in place for 3 days. May then remove and leave open to air or cover incisions with Band-Aids. May shower after 5 days. Follow-up: 10-[address] Luong at [facility] orthopedics Let us know right away if you develop any redness, drainage, fevers, chest pain, or trouble breathing. Do not drink alcohol or drive for at least 24 hours after anesthesia. Please call the office during business hours with any questions or concerns. Discharge Orders Discharge Orders: Discharge Order (Routine); Ordered 07/12/21 Ordered By: Berhane Luong DS: Diagnosis Discharge Diagnosis (1) Fracture of femoral neck, left, closed: Status: Acute
--- NOTE | 2021-07-12 11:38 | W.ANESPOSTOP ---
Postoperative Evaluation Date, Time and Location Date Performed: 07/12/21 Time Performed: 11:38 Patient Location: PACU Vital Signs Most Recent Imported Vital Signs: Most Recent Vital Signs Temp Pulse Resp BP Pulse Ox 36.5 C 64 13 142/74 H 98 07/12/21 11:35 07/12/21 11:35 07/12/21 11:35 07/12/21 11:35 07/12/21 11:35 Pain Score Most Recent Pain Score: Most Recent Pain Score Pain Level [Left Hip] 5 07/11/21 18:11 Pain Level 0 07/12/21 11:35 Assessment Mental Status: Awake (Alert & Oriented to Patient Baseline) Airway and Respiratory Function: Patent airway with normal (patient baseline) respiratory exam Cardiovascular Function: Hemodynamically Stable Hydration Status: Adequately Hydrated Nausea & Vomiting: No Nausea or Vomiting Pain: Pt. Denies Any Pain Peripheral Nerve Block: Patient did not receive a nerve block
[2021-07-12] MEDS: traMADol 50 MG TAB PO (12:23)
--- NOTE | 2021-07-12 13:06 | PT.INIE ---
Date of service: 07/12/21 Time of Service: 13:06 PT Notes Visit Reasons: Left hip fracture Physical Therapy Day Surgery Initial Evaluation Date: 07/12/2021 Referring Doctor: Berhane Luong MD PT Orders: PT CONSULT: Status post Ortho surgery. WBAT with walker. Precautions: WBAT on left LE with AD. Fall. Standard. Patient Profile/Admitting Diagnosis: Trauma is a 70-year-old female who presented to the ED on 07/11/2020 due left hip pain following a fall. Patient sustained a minimally displaced fracture of the left femoral neck and is status post left hip percutaneous skeletal fixation on postoperative day 0. PMHX: Active Problem List Fracture of femoral neck, left (Acute) Fracture of femoral neck, left, closed (Acute) Diverticulosis (Acute) Sebaceous cyst of labia (Chronic) Family history of colon cancer (Acute) Status post total right knee replacement (Acute 02/13/16) Sleep disturbance, unspecified (Acute) Polyp of colon (Acute 10/25/13) Obesity (Acute 03/03/13) Hypothyroidism (Acute 03/03/13) Family hx-breast malignancy (Acute) Depressive disorder, not elsewhere classified (Acute 03/05/13) Abnormal cervical Papanicolaou smear (Acute 03/23/12) Anxiety state, unspecified (Acute 03/05/13) Arthritis of knee, right (Acute) Surgical History Replacement of total knee joint right Social History/Home Situation: Lives in a private home with 4 steps to enter with rail on 1 side. Independent with all aspects of ADLs without any assistive device. No falls in the past year. Equipment Owned/DME: None Subjective: Reports PT consult. Complained of 5/10 pain in the left hip at rest and and with weight bearing. Denies chest pain, headach, and lightheadedness throughout session. Objective: General Observation: Supine in stretcher. Mepilex Ag over surgical incision. TEDs in B legs. Mental Status: Alert and oriented x 4 Pain: 5/10 pain in the left hip at rest and with movement ROM: Right Lower Extremity: Hip flexion WFL. Hip abduction WFL. Knee flexion WFL. Ankle dorsiflexion WFL. Ankle plantarflexion WFL. Left Lower Extremity: Hip flexion lacks the last 10 degrees of movement due to discomfort L. Hip abduction WFL. Knee flexion WFL. Ankle dorsiflexion WFL. Ankle plantarflexion WFL. Strength: Right Lower Extremity: Hip flexors 5/5. Hip abductors 5/5. Knee flexors 5/5. Knee extensors 5/5. Ankle dorsiflexors 5/5. Ankle plantarflexors 5/5. Left Lower Extremity:Hip flexors 3-/5. Hip abductors 4/5. Knee flexors 5/5. Knee extensors 4/5. Ankle dorsiflexors 5/5. Ankle plantarflexors 5/5. Sensation: Denies numbness and tingling in bilateral lower extremities. Intact as to pain and light touch in bilateral lower extremities. Bed Mobility/Transfers: Supine to sit standby assist Sit to stand contact-guard assist Stand to sit standby assist Bed to chair standby assist Gait: Assisted patient with level surface ambulation using front wheel walker with step through gait pattern, weight bearing as tolerated on the left LE as ordered by orthopod. Minimal verbal cueing needed for walker management and safe gait pattern. Complained of 5/10 pain in the left hip at subsided with rest. Nurse Ruthann assisted with ambulation activity for safety. Stairs: Negotiated and down 6 x 4-inch steps and 4 x 6-inch steps while holding onto bilateral rails with step-to gait pattern requiring standby assist. Balance: Static Sitting: Normal Dynamic Sitting: Normal Static Standing: Fair Dynamic Standing: Fair Special Tests: Mobility Limitations Standardized Measure [facility] AM-PAC 6 clicks Basic Mobility Inpatient Short Form: No Raw Score: 22 CMS Score: 21% deficit Informed Consent/Education: Patient instructed in purpose of PT consult. Packet containing L Hip ORIF exercise protocol has been given to patient. Education and training on initial set of exercises that can be done at home have been completed with patient. Assessment: Mya demonstrates functional mobility decline, strength deficits in the left hip flexors, and requires the use of a front-wheeled walker for all mobility ADL performance. Patient presents with clinical signs and symptoms consistent with current/admitting diagnoses that have resulted to mobility limitations, and gait instability as demonstrated by the following impairment level findings: 1. Decreased strength to left hip major muscle groups 2. Impaired standing balance 3. Limitation of joint range of motion in left hip Impairments are contributing to the following functional limitations: 1. Inability to safely ambulate without assistive device 2. Increase completion time for mobility ADL performance 3. Increased fall risk Patient is assessed as a complexity based on the following: History: 70-year-old female with impairment level findings, functional limitations, and past medical history as indicated above Examination: Demonstrable impairment in strength, balance, and mobility level with underlying impairments and functional limitations as documented above Presentation: Evolving Decision Makin moderate complexity Goals: N/A. PT evaluation and 1-2 treatment sessions only for functional mobility training using recommended AD and for HEP instruction. Plan of Care/Treatment Plan: N/A. PT evaluation and 1-2 treatment session only for functional mobility training using recommended AD and for HEP instruction. DISCHARGE RECOMMENDATIONS: [] Home with no services [] [X] Home with services. Home when medically cleared by orthopedic surgeon. Will benefit from outpatient PT services in order to physical return to independent community ambulation without an assistive device. [] Home with outpatient PT [] [] SNF for continued rehabilitation [] [] [facility] [] [] SNF versus LTC based on ability to participate and progress [] TREATMENT CODE/TIME: 62963 x 22 minutes beginning at 13:06 PM. Thank you for the opportunity to participate in the care of this patient. Joanna Jacobo PT, DPT, CLT [facility] [place], [place]
== END 2021-07-12 09:19 | disposition home or self-care (01) ==
LOC: ER 07-12 09:53 → SUR 07-12 10:22
PROVIDERS: Family Medicine; Physician Assistant; Emergency Provider Student in an Organized Health Care Education/Training Program; PCP Emergency Medicine; Visit Provider Student in an Organized Health Care Education/Training Program
PROC: (CPT 27235; principal; 2021-07-12 09:45)
DX: S72.002A Fracture of unspecified part of neck of left femur, initial encounter for closed fracture (principal); W19.XXXA Unspecified fall, initial encounter; E03.9 Hypothyroidism, unspecified
CPT/HCPCS: 27235; 36415; 51702; 80048; 80053; 87635; 93005; 97162; 99213; 99285; 73501; 73502; 81003; 81015; 85025; 85610; 85730; 93010; J0690; J1100; J2001; J2370; J2405; J3010

== ENCOUNTER 2021-07-25 10:36 | Outpatient (CLI) | payer MEDICARE, SELFPAY ==
--- NOTE | 2021-07-25 10:00 | DI.RAD_ITS ---
Exam(s) XR HIP LT AP LAT ONLY EXAM: XR HIP LT AP LAT ONLY CLINICAL HISTORY: hip fx ORIF. TECHNIQUE: 2D digital imaging was performed. 2D digital imaging was performed of the left hip. Two views were obtained. AP pelvis and lateral le ft hip views were obtained. COMPARISON: XR HIP LT IN OR from 07/12/2021 XR HIP LT IN OR from 07/12/2021 FINDINGS: BONES: There are stable post operative changes present. No new fracture or dislocation. JOINTS: The joint spaces are well maintained. No joint effusion is present. SOFT TISSUE: Normal. IMPRESSION: Stable postoperative changes. DATA REPOSITORY: RADIATION DOSE DELIVERED:
== END 2021-07-25 10:37 | disposition home or self-care (01) ==
LOC: DIORS 10:36
PROVIDERS: PCP Emergency Medicine; Referring Provider Emergency Medicine; Visit Provider Physician Assistant
DX: S72.002D Fracture of unspecified part of neck of left femur, subsequent encounter for closed fracture with routine healing; X58.XXXD Exposure to other specified factors, subsequent encounter
CPT/HCPCS: 73502

== ENCOUNTER 2021-09-12 09:22 | Outpatient (CLI) | payer MEDICARE, SELFPAY ==
--- NOTE | 2021-09-12 09:00 | DI.RAD_ITS ---
Exam(s) XR HIP LT AP LAT ONLY EXAM: XR HIP LT AP LAT ONLY CLINICAL HISTORY: left femur fx f/u. TECHNIQUE: 2D digital imaging was performed. COMPARISON: CR XR HIP LT AP LAT ONLY from 07/25/2021 FINDINGS: Three orthopedic screws are again noted across the left femoral neck fracture site. Alignment remain s stable. No screw migration evident. No radiographic evidence of osteomyelitis. No other osseous findings in the pelvis and hips IMPRESSION: DATA REPOSITORY: RADIATION DOSE DELIVERED:
== END 2021-09-12 09:23 | disposition home or self-care (01) ==
LOC: DIORS 09:22
PROVIDERS: PCP Family Medicine; Referring Provider Family Medicine; Visit Provider Student in an Organized Health Care Education/Training Program
DX: S72.002A Fracture of unspecified part of neck of left femur, initial encounter for closed fracture (principal); X58.XXXA Exposure to other specified factors, initial encounter
CPT/HCPCS: 73502

== ENCOUNTER 2022-04-24 14:19 | Outpatient (REF) | payer MEDICARE, SELFPAY ==
--- NOTE | 2022-04-24 14:01 | PAPFT_PTH ---
PATIENT: Mya Berumen LOC: [facility] U#:[id number] AGE/SX: 71/F ROOM: RE04/24/[address]: Smiley Herndon MD : [id number] BED: DIS: 04/24/2022 SPEC #: [id number] RECD: 04/24/22 17:49 STATUS: SONIAМария REQ #: [id number] SELMA: 04/24/22 14:[address]: Smiley Herndon DEPT: [facility] Cytology RECD BY: Cassia Scanlon ENTERED: 04/24/22 17:50 SP TYPE: PAPFT OTHR DR: Stella Brady, PhD VOCATIONAL ED INSTRUCTOR Tissues: 1 - CX/ENDOCX FOR PAP SMEARS Procedures: PAP THIN PREP/UVM Screening HPV DNA PROBE Comments: [id number]
== END 2022-04-24 14:20 | disposition home or self-care (01) ==
LOC: LBN 14:19
PROVIDERS: PCP Nurse Practitioner; Visit Provider Obstetrics & Gynecology
DX: Z12.4 Encounter for screening for malignant neoplasm of cervix (principal); Z11.51 Encounter for screening for human papillomavirus (HPV); Z01.419 Encounter for gynecological examination (general) (routine) without abnormal findings
CPT/HCPCS: 88142; 87624

== ENCOUNTER → 2022-05-14 02:30 | Outpatient (CLI) | payer MEDICARE, SELFPAY ==
--- NOTE | 2022-05-14 12:15 | DI.MAMMO_ITS ---
Exam(s) MAMMO SCREENING EXAM: MAMMO SCREENING CLINICAL HISTORY: screening TECHNIQUE: Bilateral full field digital CC and MLO mammographic images were obtained with 3D tomosyn thesis and utilizing computer aided detection (CAD). COMPARISON: Available for comparison. FINDINGS: Masses/Architectural Distortion: None seen. Microcalcifications: No suspicious pleomorphic-type are seen. Skin Thickening/Nipple Retraction: None. IMPRESSION: 1. No significant interval change with no specific features of malignancy noted. 2. Unless there is more urgent need, screening mammography is recommended, as per [employer] guidelines. BI-RADS Category 1 - Negative Breast Density - Category B - Scattered areas of fibroglandular density Breast density category C or D implies that the patient has dense breast tissue. Dense breast tissue is very common and is not abnormal but dense breast tissue can make it harder to find cancer on a ma mmogram. Also, dense breast tissue may increase their breast cancer risk. This information about the result of the mammogram report was provided to the patient to raise their awareness. Use this report when you speak with the patient about their risks for breast cancer, which includes their family hist ory. At that time, you may recommend for more screening tests (Ultrasound or MRI) as they might be us eful based on their risk. A negative radiographic report should not delay biopsy if a dominant or clinically suspicious mass is present. Up to ten percent of cancers are not identified on mammography. A negative report may reinforce clinical impression. Adenosis and dense breasts may obscure an underlying neoplasm. False positive reports average 6 to 10%. Patient will receive a letter notifying them of these results.
== END ==
PROVIDERS: PCP Nurse Practitioner; Visit Provider Obstetrics & Gynecology
DX: Z12.31 Encounter for screening mammogram for malignant neoplasm of breast (principal)
CPT/HCPCS: 77063; 77067

== ENCOUNTER 2022-06-07 01:38 | Outpatient (CLI) | payer MEDICARE, SELFPAY ==
[2022-06-07 12:41] LABS: ALT 32 U/L (14-59); AST 23 U/L (15-37); Albumin 3.9 g/dL (3.4-5.0); Alkaline Phosphatase 98 U/L (46-116); Anion Gap 5.5 mmol/L (3-11); BUN 35 mg/dL (7-18); Bilirubin, Total 0.6 mg/dL (0.2-1.0); CO2 30.5 mmol/L (21.0-32.0); CREATININE 0.7 mg/dL (0.55-1.02); Calcium 9.1 mg/dL (8.5-10.1); Chloride 105 mmol/L (98-107); Estimated GFR 92.41 (mL/min/1.73m2); Glucose 100 mg/dL (74-106); Potassium 4.3 mmol/L (3.5-5.1); Sodium 141 mmol/L (136-145); TSH (W/Ref FT4) 2.62 uIU/mL (0.36-3.74); Total Protein 7.3 g/dL (6.4-8.2)
[2022-06-07 12:54] LABS: Hemoglobin A1C 5.7 % (<5.7)
== END 2022-06-07 01:39 | disposition home or self-care (01) ==
LOC: LOS 01:38
PROVIDERS: PCP Nurse Practitioner Family; Visit Provider Nurse Practitioner Family
DX: E03.9 Hypothyroidism, unspecified (principal); E66.9 Obesity, unspecified; R73.09 Other abnormal glucose
CPT/HCPCS: 36415; 80053; 83036; 84443

== ENCOUNTER 2023-07-22 02:34 | Outpatient (CLI) | payer MEDICARE, SELFPAY ==
[2023-07-22 12:20] LABS: HCT 38.8 % (36.0-46.0); HGB 12.6 g/dL (11.2-15.7); MCH 28.8 pg (27.0-33.0); MCHC 32.5 % (32.0-36.0); MCV 89 fL (80-95); MPV 10.3 fL (8.0-11.0); Platelet Count 268 10^3/uL (130-400); RBC 4.38 10^6/uL (3.93-5.22); RDW 13.3 % (11.7-14.6); RDW-SD 43.7 fL; WBC 4.45 10^3/uL (4.4-10.8)
[2023-07-22 12:38] LABS: Hemoglobin A1C 5.5 % (<5.7)
[2023-07-22 13:03] LABS: Anion Gap 7.5 mmol/L (3-11); BUN 26 mg/dL (7-18); CO2 27.5 mmol/L (21.0-32.0); CREATININE 0.8 mg/dL (0.55-1.02); Calcium 8.9 mg/dL (8.5-10.1); Calculated LDL 146 mg/dL (<100); Chloride 104 mmol/L (98-107); Cholesterol 217 mg/dL (<200); Estimated GFR 78.24 (mL/min/1.73m2); Glucose 102 mg/dL (74-106); HDL Cholesterol 59 mg/dL (40-60); Potassium 4.2 mmol/L (3.5-5.1); Sodium 139 mmol/L (136-145); TSH 5.71 uIU/mL (0.36-3.74); Triglyceride 64 mg/dL (<150)
== END 2023-07-22 02:35 | disposition home or self-care (01) ==
LOC: LOS 02:34
PROVIDERS: PCP Nurse Practitioner Family; Visit Provider Nurse Practitioner Family
DX: E03.9 Hypothyroidism, unspecified (principal); E66.9 Obesity, unspecified; F32.9 Major depressive disorder, single episode, unspecified; F41.1 Generalized anxiety disorder; R73.09 Other abnormal glucose
CPT/HCPCS: 36415; 80048; 80061; 85027; 83036; 84443

== ENCOUNTER → 2023-07-25 01:09 | Outpatient (CLI) | payer MEDICARE, SELFPAY ==
--- NOTE | 2023-07-25 06:15 | DI.MAMMO_ITS ---
Exam(s) MAMMO SCREENING EXAM: MAMMO SCREENING CLINICAL HISTORY: screening,Z12.39 TECHNIQUE: Bilateral full field digital CC and MLO mammographic images were obtained with 3D tomosyn thesis and utilizing computer aided detection (CAD). COMPARISON: Available for comparison. FINDINGS: Masses/Architectural Distortion: None seen. Microcalcifications: No suspicious pleomorphic-type are seen. Skin Thickening/Nipple Retraction: None. IMPRESSION: 1. No significant interval change with no specific features of malignancy noted. 2. Unless there is more urgent need, screening mammography is recommended, as per [place] [employer] guidelines. BI-RADS Category 1 - Negative Breast Density - Category B - Scattered areas of fibroglandular density Breast density category C or D implies that the patient has dense breast tissue. Dense breast tissue is very common and is not abnormal but dense breast tissue can make it harder to find cancer on a ma mmogram. Also, dense breast tissue may increase their breast cancer risk. This information about the result of the mammogram report was provided to the patient to raise their awareness. Use this report when you speak with the patient about their risks for breast cancer, which includes their family hist ory. At that time, you may recommend for more screening tests (Ultrasound or MRI) as they might be us eful based on their risk. A negative radiographic report should not delay biopsy if a dominant or clinically suspicious mass is present. Up to ten percent of cancers are not identified on mammography. A negative report may reinforce clinical impression. Adenosis and dense breasts may obscure an underlying neoplasm. False positive reports average 6 to 10%. Patient will receive a letter notifying them of these results.
== END ==
PROVIDERS: PCP Nurse Practitioner Family; Visit Provider Nurse Practitioner Family
DX: Z12.31 Encounter for screening mammogram for malignant neoplasm of breast (principal)
CPT/HCPCS: 77063; 77067

== ENCOUNTER 2023-11-12 09:35 | Outpatient (REF) | payer MEDICARE, SELFPAY | END 2023-11-12 09:36 | disposition home or self-care (01) | LOC: LBN 09:35 | PROVIDERS: PCP Nurse Practitioner Family; Visit Provider Obstetrics & Gynecology | DX: N94.9 Unspecified condition associated with female genital organs and menstrual cycle (principal) | CPT/HCPCS: 87480; 87510; 87660 ==

== ENCOUNTER 2024-05-20 19:07 | Outpatient (REF) | payer MEDICARE, SELFPAY ==
[2024-05-20 19:57] LABS: HCT 42.4 % (36.0-46.0); HGB 13.7 g/dL (11.2-15.7); MCH 28.3 pg (27.0-33.0); MCHC 32.3 % (32.0-36.0); MCV 88 fL (80-95); MPV 10.9 fL (8.0-11.0); Platelet Count 307 10^3/uL (130-400); RBC 4.84 10^6/uL (3.93-5.22); RDW 13.2 % (11.7-14.6); RDW-SD 42.9 fL; WBC 5.03 10^3/uL (4.4-10.8)
[2024-05-20 20:35] LABS: Anion Gap 9.1 mmol/L (3-11); BUN 23 mg/dL (7-18); CO2 26.9 mmol/L (21.0-32.0); CREATININE 0.7 mg/dL (0.55-1.02); Calcium 9.2 mg/dL (8.5-10.1); Chloride 105 mmol/L (98-107); Estimated GFR 91.26 (mL/min/1.73m2); Glucose 102 mg/dL (74-106); Potassium 4.4 mmol/L (3.5-5.1); Sodium 141 mmol/L (136-145); TSH (W/Ref FT4) 1.53 uIU/mL (0.36-3.74)
[2024-05-24 15:07] LABS: IgA 174 mg/dL (85-499); Interpretation (See Note); Tissue Transglutaminase IgA <4.0 CU (<20.0)
== END 2024-05-20 19:08 | disposition home or self-care (01) ==
LOC: LBN 19:07
PROVIDERS: PCP Nurse Practitioner Family; Visit Provider Nurse Practitioner Family
DX: R19.7 Diarrhea, unspecified (principal); Z12.11 Encounter for screening for malignant neoplasm of colon; Z12.12 Encounter for screening for malignant neoplasm of rectum
CPT/HCPCS: 80048; 82784; 83516; 85027; 84443

== ENCOUNTER 2024-05-24 19:22 | Outpatient (REF) | payer MEDICARE, SELFPAY ==
[2024-05-25 12:08] LABS: Campylobacter PCR Negative (Negative); Salmonella PCR Negative (Negative); Shiga Toxin PCR Negative (Negative); Shigella/Enteroinvasive Ecoli Negative (Negative)
[2024-05-26 22:02] LABS: Calprotectin <50.0 mcg/g
== END 2024-05-24 19:23 | disposition home or self-care (01) ==
LOC: LBN 19:22
PROVIDERS: PCP Nurse Practitioner Family; Visit Provider Nurse Practitioner Family
DX: R19.7 Diarrhea, unspecified (principal)
CPT/HCPCS: 87505; 83993; 87177

== ENCOUNTER → 2024-08-05 13:30 | Outpatient (BNVA) | payer MEDICARE, SELFPAY | PROVIDERS: PCP Nurse Practitioner Family; Referring Provider Nurse Practitioner Family; Visit Provider Physical Therapy Assistant | DX: Z12.11 Encounter for screening for malignant neoplasm of colon (principal); Z80.0 Family history of malignant neoplasm of digestive organs ==

== ENCOUNTER 2024-08-13 00:14 | Outpatient (CLI) | payer MEDICARE, SELFPAY ==
--- NOTE | 2024-08-13 06:45 | DI.MAMMO_ITS ---
Exam(s) MAMMO SCREENING EXAM: MAMMO SCREENING CLINICAL HISTORY: screening,Z12.39 TECHNIQUE: Bilateral full field digital CC and MLO mammographic images were obtained with 3D tomosyn thesis and utilizing computer aided detection (CAD). COMPARISON: Available for comparison. FINDINGS: Masses/Architectural Distortion: None seen. Microcalcifications: No suspicious pleomorphic-type are seen. Skin Thickening/Nipple Retraction: None. IMPRESSION: 1. No significant interval change with no specific features of malignancy noted. 2. Unless there is more urgent need, screening mammography is recommended, as per [employer] [employer] guidelines. BI-RADS Category 1 - Negative Breast Density - Category B - Scattered areas of fibroglandular density Breast density category C or D implies that the patient has dense breast tissue. Dense breast tissue is very common and is not abnormal but dense breast tissue can make it harder to find cancer on a ma mmogram. Also, dense breast tissue may increase their breast cancer risk. This information about the result of the mammogram report was provided to the patient to raise their awareness. Use this report when you speak with the patient about their risks for breast cancer, which includes their family hist ory. At that time, you may recommend for more screening tests (Ultrasound or MRI) as they might be us eful based on their risk. A negative radiographic report should not delay biopsy if a dominant or clinically suspicious mass is present. Up to ten percent of cancers are not identified on mammography. A negative report may reinforce clinical impression. Adenosis and dense breasts may obscure an underlying neoplasm. False positive reports average 6 to 10%. Patient will receive a letter notifying them of these results.
== END 2024-08-13 00:34 ==
LOC: DI 00:14
PROVIDERS: PCP Nurse Practitioner Family; Visit Provider Nurse Practitioner Family
DX: Z12.31 Encounter for screening mammogram for malignant neoplasm of breast (principal); R92.323 Mammographic fibroglandular density, bilateral breasts
CPT/HCPCS: 77063; 77067

== ENCOUNTER 2024-08-23 06:59 | Day surgery (SDC) | payer MEDICARE, SELFPAY ==
--- NOTE | 2024-08-22 05:42 | W.PM.DSUDISC ---
Date of service: 08/23/24 Discharge Plan Disposition Patient Disposition: Home Condition: Good Discharge Details Reason For Visit: screening colonoscopy Attending Provider: Keron Frias Primary Care Provider: Brandee Dhillon Home Meds and New Rx's Prescriptions: Continued (DME) BreatheRite MDI Spacer Spacer See Rx Instructions .ROUTE .MEDSUPPLY Qty: 1 0RF Rx Instructions: As directed PreserVision AREDS 1 EACH tablet 2 ea PO DAILY ropinirole 1 mg tablet 1 - 2 mg PO QHS Qty: 180 3RF Rx Instructions: administer 2-3 hours before bedtime citalopram 20 mg tablet 20 mg PO DAILY Qty: 90 3RF levothyroxine [Synthroid] 175 mcg tablet 175 mcg PO DAILY Qty: 90 3RF famotidine 20 mg tablet See Rx Instructions .ROUTE .COMPLEX Qty: 180 3RF Dose Instruction: TAKE 1 TABLET BY MOUTH TWICE DAILY Rx Instructions: TAKE 1 TABLET BY MOUTH TWICE DAILY naproxen 250 mg tablet 250 - 500 mg PO BID PRN (Reason: Moderate pain or swelling) Qty: 40 0RF Discontinued bisacodyl [Dulcolax (bisacodyl)] 5 mg tablet,delayed release (DR/EC) 5 mg PO ONCE Qty: 4 0RF Rx Instructions: Take per colonoscopy instructions provided by ordering providers office polyethylene glycol 3350 17 gram/dose powder 17 g PO ONCE Qty: 238 0RF Rx Instructions: Take per colonoscopy instructions provided by ordering providers office Discharge Instructions Instructions: Colon polyps, Diverticulosis Additional Instructions: Mya, was very nice meeting you today, and I hope you are comfortable through the colonoscopy. Everything went very smoothly. I did find and remove a single polyp today. This will be sent off for testing since polyps to come in different varieties, we use the information from the polyp analysis to help guide the timing of your next colonoscopy. Incidentally, you also have a little bit of diverticulosis. Diverticula are little weak spots in the muscular part of the colon wall. These can get infected or inflamed during episodes that we refer to as diverticulitis. I have attached some basic information here about both diverticula as well as colorectal polyps. If you have any questions at all, please do not hesitate to ask, otherwise the office will be in touch once the polyp analysis is available 1. If tolerated, consume a soft, low fiber diet for 1-2 days. 2[address] Do not drive, drink alcohol, operate machinery, make critical decisions, or do activities that require coordination or balance for 24 hours. 3. Because air was put into your colon during the procedure, expelling air from your rectum (passing gas or farting) is normal. 4. You may not have a bowel movement for 1-3 days because of the colonoscopy prep. This is normal. 5. Go directly to the emergency room if you notice any of the following: Develop chills (warm to touch), or if you have a thermometer and your temperature is above 101 Difficulty breathing or difficultly swallowing Persistent vomiting Severe abdominal pain, other than gas cramps Severe chest pain Black, tarry stools Any bleeding ? exceeding one tablespoon 6. Call your physician if the site where your intravenous was started becomes red, swollen, painful, and warm to touch. 7. Your physician has reviewed your pre-procedure medications. Please continue to take those medications as previously ordered. You will be given specific information/education regarding any changes to your medications before leaving. Activity:: Activity as Tolerated Diet:: As Tolerated Discharge Orders Discharge Orders: Discharge Order (Routine); Ordered 08/22/24 Ordered By: Keron Frias DS: Diagnosis Discharge Diagnosis (1) Encounter for screening colonoscopy: Status: Acute Asessment and Plan: Follow-up on polypectomy results
--- NOTE | 2024-08-22 05:43 | W.COLOREPORT ---
Date of service: 08/23/24 Time of Service: 08:37 Colonoscopy Report Date of procedure: 08/23/24 Pre-op diagnosis general: screening colonoscopy Post-op diagnosis procedure note: other (Colon polyp, diverticulosis) Procedure: colonoscopy with polypectomy Surgeon: Keron Frias Anesthesia Type: General:No Airway Estimated blood loss (mL): 5 Pathology: other (0.25 cm flat rectal polyp) Complications: None Disposition: same day Indications: Mya is a 73 year old woman with a family history of colon cancer who needs her next screening colonsocopy Prep: Miralax/Dulcolax Procedure Start Time: 08:02 Procedure End Time: 08:30 Retraction Time: 16 Findings: 0.25 cm flat rectal polyp, diverticulosis Procedure Description: After the induction of anesthesia, and with Mya in left lateral decubitus position, I began by performing an external anorectal exam.? There are some perianal skin tags consistent with old hemorrhoids. Next, I performed a digital rectal exam.? I did not appreciate any abnormal findings.? Next, I advanced a colonoscope into the rectal vault.? I performed retroflexion.? This appears normal.? In the upper portion of the rectal vault was a 0.25 cm flat polyp. This was removed with cold forceps with minimal bleeding. Using insufflation, I then advanced the colonoscope beyond the rectal folds and into the sigmoid colon before advancing towards the cecum.? The quality of the prep was adequate.? The scope was noted to be in the cecum by identification of the ileocecal valve and appendiceal orifice.? I then began withdrawing the colonoscope using repeated irrigation as necessary for full evaluation of the colonic mucosa. There is sigmoid diverticulosis. once the scope was withdrawn to the level of the rectum, great care was taken to examine portions of the rectal folds.? Finally, the scope was withdrawn and the patient was brought to the same-day surgery recovery unit as the anesthetic wore off. ?The findings and instructions were shared with the patient prior to discharge. Old [place] Bowel Prep Old [place] Bowel Prep Right Colon: 2 Left Colon: 2 Transverse Colon: 2 Total Score: 6
--- NOTE | 2024-08-22 15:25 | W.ANESPRE ---
General Info Date of Service Date Performed: 08/23/24 Height: 5 ft 3 in Weight: 92.079 kg Body Mass Index (BMI): 35.9 Surgical Procedure: Operation Date: 08/23/24 08:20 Proposed Procedure Side Surgeon p Colonoscopy Keron Frias MD Meds Allergies and Home Medications Allergies Allergy/AdvReac Type Severity Reaction Status Date / Time No Known Drug Allergies Allergy Other (See Verified 08/23/24 07:09 Comment) Home Medication ?Medication ?Instructions ?Recorded vitamins A,C,I-oplk-btnohz 2,148 2 ea PO DAILY 07/04/16 mcg-113 mg-45 mg-17.4 mg tablet (PreserVision AREDS) naproxen 250 mg tablet 250 - 500 mg (1 - 2 x 250 mg) PO 07/12/21 BID PRN Moderate pain or swelling #40 tabs inhalational spacing device #1 ea 05/12/23 (BreatheRite MDI Spacer) ropinirole 1 mg tablet 1 - 2 mg (1 - 2 x 1 mg) PO QHS 06/07/24 #180 tabs citalopram 20 mg tablet 20 mg PO DAILY #90 tab-caps 06/28/24 levothyroxine 175 mcg tablet 175 mcg PO DAILY #90 tab-caps 06/28/24 (Synthroid) famotidine 20 mg tablet See Rx Instructions .Route 07/29/24 .COMPLEX #180 tabs Current Visit Medications: Current Medications Generic Name Dose Route Start Last Admin Trade Name Freq PRN Reason Stop Dose Admin IV Miscellaneous Supplies 1 each 08/23/24 06:00 Iv Access IV 08/23/24 23:59 DIRECTED EVANGELISTA Sodium Chloride 0 ml 08/23/24 06:00 Normal Saline Flush 10 Ml Syr IV 08/23/24 23:59 PRN PRN Sodium Chloride 0 ml 08/23/24 06:00 Normal Saline 10 Ml Vial IJ 08/23/24 23:59 DIRECTED PRN Sterile Water 0 ml 08/23/24 06:00 Water,Injection,Sterile 10 Ml Vial IJ 08/23/24 23:59 DIRECTED PRN PFSH Active Problems Active Problems: Problem Status Onset Code Encounter for screening colonoscopy Acute Z12.11 Osteoarthritis of hands, bilateral Acute M19.041, M19.042 Elevated glucose Acute R73.09 Bladder incontinence Acute R32 Yeast dermatitis Acute B37.2 Diverticulosis Acute K57.90 Sleep disturbance, unspecified Acute G47.9 Polyp of colon Acute 10/25/13 K63.5 Obesity Acute 03/03/13 E66.9 Hypothyroidism Acute 03/03/13 E03.9 Depressive disorder, not elsewhere classified Acute 03/05/13 F32.9 Anxiety state, unspecified Acute 03/05/13 F41.1 Arthritis of knee, right Acute M19.90 Medical History Medical History Fracture of femoral neck, left, closed (07/11/21) pin in situ Sebaceous cyst of labia 12/2018 history of infected cyst. Drained spontaneously treated with cephalexin. Family history of colon cancer Family hx-breast malignancy Abnormal cervical Papanicolaou smear (03/23/12) 2011 - [facility] with negative Colpo/ECC and EMBx Surgical History Surgical History Replacement of total knee joint right Tobacco Smoking/Tobacco Use Status: Never Passive smoking exposure: Yes Second hand exposure: Yes Alcohol Alcohol Intake: former Substance Use Substance use: Never Substance use type: does not use Prental History History 2 Para 2 Hx # Term Pregnancies Multiple births Hx # Pregnancies Ectopic pregnancies AB induced Hx Number of Living Children 1 AB spontaneous Vital Signs and Lab Results Vital Signs Most Recent Vital Signs in EMR: Temp Pulse Resp BP Pulse Ox 36.2 C L 85 20 143/85 H 98 08/23/24 07:17 08/23/24 07:17 08/23/24 07:17 08/23/24 07:17 08/23/24 07:17 Lab Results Blood Type / Crossmatch: No Data to Display Complete Blood Count: No Data to Display Complete Metabolic Panel: No Data to Display Liver Function Panel: No Data to Display Coagulation Panel: No Data to Display Cardiac Panel: No Data to Display Arterial Blood Gas: No Data to Display Venous Blood Gas: No Data to Display Pancreas Panel: No Data to Display Thyroid Panel: No Data to Display Infectious Disease: No Data to Display Blood Cultures: No Data to Display Toxicology Panel: No Data to Display Imaging and Studies Imaging and Studies Study information below may be from another EMR and interpreted by another provider. Please see original notes in EMR for more complete details. EKG Summary: 07/11/2021: Exam: Resting ECG Reason for Exam: pre procedure Patient Location: E HR:83 bpm ECG Measurements Heart Rate 83 AXIS ME 139 P 71 QRSd 80 QRS 24 QT 367 T21 QTc 431 Conclusion Sinus rhythm...normal P axis, V-rate 60- 99. Sinus. No STEMI. I have reviewed and interpreted ECG and agree with software generated interpretation. Anesthesia Assessment and Plan Anesthesia History Personal History: No History of Anesthesia Complications Family History: No Family History of Anesthesia Complications Exercise Tolerance Exercise Tolerance: Metabolic Equivalents>4 Cardiac & Pulmonary Exam Cardiac Exam: Normal S1/S2 Heart Sounds Pulmonary Exam: Clear Bilateral Breath Sounds Implantable Cardiac Device Does patient have a Pacemaker or an ICD?: No Airway Exam Known Difficult Airway: No Mallampati Class: 1 Mouth Opening: Normal (> 3cm) Thyromental Distance: Greater than 3 cm Neck Range of Motion: Full ROM Neck Circumference: Normal Teeth Condition: Normal Dentition Airway Comments: #41, #31, #32 missing. none loose or chipped ASA Classification ASA Score: ASA 2 Emergency Case?: No NPO Status NPO Status: NPO Clears >2 hours, Solids >8 hours Anesthesia Plan Resuscitation Status: Full Code Anesthesia Technique: General Anesthesia Airway Planned: Natural Airway Monitors Used: Standard Monitors Preoperative Comments:: 73 yo female for colo. Sig PMHx: GERD (famotidine), hypothyroid (on replacement), depression/anxiety, never smoker. EKG: sinus. Previous Anes: - hip fx, glide 3 grade 1, easy mask, phenyl gtt, no issues. - colo, prop, natural airway, no issues. - TKA, spinal, prop sedation, no issues.
[2024-08-23 07:17] VITALS: BP 143/85; PULSE 85; RESP 20; TEMP 36.2; O2SAT 98
[2024-08-23 07:27] VITALS: BMI 35.9
[2024-08-23] MEDS: Lactated Ringers 1,000 ML 80 ML IV (07:59)
--- NOTE | 2024-08-23 08:04 | BOWEL_PTH ---
PATIENT: Mya Berumen LOC: [facility] U#:[id number] AGE/SX: 73/F ROOM: RE08/23/[address]: Keron Frias MD : 1950 BED: DIS: 08/23/2024 SPEC #: [id number] RECD: 08/23/24 12:29 STATUS: ABEL REQ #: [id number] SELMA: 08/23/24 08:[address]: Keron Frias DEPT: Surgical Specimen RECD BY: Cassia Scanlon ENTERED: 08/23/24 12:30 SP TYPE: Bowel OTHR DR: Brandee Dhillon, KAITLIN Tissues: 1 - BIOPSY BOWEL Procedures: GROSS AND MICRO LEVEL 4 Comments: [id number]
[2024-08-23 08:35] VITALS: BP 111/71; PULSE 77; RESP 18; TEMP 36.1; O2SAT 97
--- NOTE | 2024-08-23 08:50 | W.ANESPOSTOP ---
Postoperative Evaluation Date, Time and Location Date Performed: 08/23/24 Time Performed: 08:50 Patient Location: Day Surgery Unit Vital Signs Most Recent Imported Vital Signs: Most Recent Vital Signs Temp Pulse Resp BP Pulse Ox 36.1 C L 77 18 111/71 97 08/23/24 08:35 08/23/24 08:35 08/23/24 08:35 08/23/24 08:35 08/23/24 08:35 Pain Score Most Recent Pain Score: Most Recent Pain Score Pain Level 0 08/23/24 08:35 Assessment Mental Status: Awake (Alert & Oriented to Patient Baseline) Airway and Respiratory Function: Patent airway with normal (patient baseline) respiratory exam Cardiovascular Function: Hemodynamically Stable Hydration Status: Adequately Hydrated Nausea & Vomiting: No Nausea or Vomiting Pain: Pt. Denies Any Pain Peripheral Nerve Block: Patient did not receive a nerve block
[2024-08-23 09:02] VITALS: BP 135/76; PULSE 74; RESP 18; TEMP 36.5; O2SAT 99
== END 2024-08-23 09:19 | disposition home or self-care (01) ==
LOC: SUR 06:59
PROVIDERS: PCP Nurse Practitioner Family; Visit Provider Surgery
PROC: 0DJD8ZZ Inspection of Lower Intestinal Tract, Via Natural or Artificial Opening Endoscopic (ICD-10-PCS; CPT 45378; principal; 2024-08-23 08:15)
DX: Z12.11 Encounter for screening for malignant neoplasm of colon (principal); K63.5 Polyp of colon; E03.9 Hypothyroidism, unspecified; K57.30 Diverticulosis of large intestine without perforation or abscess without bleeding
CPT/HCPCS: 45380; 88305; J2704

== ENCOUNTER 2025-02-14 21:44 | Outpatient (REF) | payer MEDICARE, SELFPAY ==
[2025-02-14 22:48] LABS: Glucose Negative (Negative)
[2025-02-14 23:02] LABS: C & S Indicated? Yes; WBC >50 HPF (0-5)
== END 2025-02-14 21:45 | disposition home or self-care (01) ==
LOC: LBN 21:44
PROVIDERS: PCP Nurse Practitioner Family; Visit Provider Nurse Practitioner Family
DX: R30.0 Dysuria (principal); B96.29 Other Escherichia coli [E. coli] as the cause of diseases classified elsewhere; R82.89 Other abnormal findings on cytological and histological examination of urine
CPT/HCPCS: 87077; 81003; 81015; 87086; 87186

== ENCOUNTER 2025-06-13 14:43 | Outpatient (REF) | payer MEDICARE, SELFPAY | END 2025-06-13 14:44 | disposition home or self-care (01) | LOC: LBN 14:43 | PROVIDERS: PCP Nurse Practitioner Family; Visit Provider Nurse Practitioner Family | DX: R30.0 Dysuria (principal); R82.89 Other abnormal findings on cytological and histological examination of urine | CPT/HCPCS: 87086 ==